=== PATIENT | male | born 1995 | race Caucasian/White ===

== ENCOUNTER 2018-12-04 17:05 | Emergency (ER) | payer SELFPAY ==
--- NOTE | 2018-12-04 17:34 | RADIOLOGY REPORT (SQ) ---
EXAM DESCRIPTION: HAND RIGHT 3 VIEWS COMPLETED DATE/TIME: 12/04/2018 5:25 pm REASON FOR STUDY: R hand injury/hit against metal bar/swollen COMPARISON: None. EXAM PARAMETERS: NUMBER OF VIEWS: Three views. TECHNIQUE: AP, lateral and oblique radiographic images acquired of the right hand. LIMITATIONS: None. FINDINGS: MINERALIZATION: Normal. BONES: 5th metacarpal diaphyseal fracture with mild dorsal angulation, no displacement. No other fra cture or Dislocation. No worrisome bone lesions. JOINTS: No effusion. SOFT TISSUES: Mild soft tissue swelling. No radiopaque foreign body. OTHER: No other significant finding. IMPRESSION: 5th metacarpal diaphyseal fracture with mild dorsal angulation, no displacement. TECHNICAL DOCUMENTATION: JOB ID: [id number] [id number] 2010 [employer]- All Rights Reserved Reading location - IP/workstation name: [email or web address]
--- NOTE | 2018-12-04 17:41 | ER Document Report ---
ED Hand/Wrist Injury - General Chief Complaint: Hand Injury Stated Complaint: HAND INJURY Time Seen by Provider: 12/04/18 17:32 Mode of Arrival: Ambulatory Information source: Patient TRAVEL OUTSIDE OF THE [place] IN LAST 30 DAYS: No - HPI Patient complains to provider of: R hand pain Injury to: Hand Onset: Yesterday - Related Data Allergies/Adverse Reactions: No Known Allergies Allergy (Unverified 12/04/18 17:10) Past Medical History - Social History Smoking Status: Current Every Day Smoker Cigarette use (# per day): Yes Smoking Education Provided: Yes Family History: None Patient has suicidal ideation: No Patient has homicidal ideation: No Renal/ Medical History: Denies: Hx Peritoneal Dialysis Review of Systems - Review of Systems Constitutional: No symptoms reported EENT: No symptoms reported Cardiovascular: No symptoms reported Musculoskeletal: See HPI, Joint pain -: Yes All other systems reviewed and negative Physical Exam - Vital signs Vitals: Temp Pulse Resp BP Pulse Ox 98.7 F 60 18 126/75 H 100 12/04/18 17:08 12/04/18 17:08 12/04/18 17:08 12/04/18 17:08 12/04/18 17:08 - Extremities Hand: Tender - over [facility] -- no deformity, pos STS Course - Vital Signs Vital signs: Temp Pulse Resp BP Pulse Ox 98.7 F 60 18 126/75 H 100 12/04/18 17:08 12/04/18 17:08 12/04/18 17:08 12/04/18 17:08 12/04/18 17:08 - Diagnostic Test Radiology reviewed: Image reviewed - fx 5th Procedures - Immobilization Right Hand Immobilizer type: Ulnar Performed by: RN Post-Proc Neuro Vasc Exam: Normal Discharge - Discharge Clinical Impression: Hand fracture, right Qualifiers: Encounter type: initial encounter Fracture type: closed Qualified Code(s): S62.91XA - Unspecified fracture of right wrist and hand, initial encounter for closed fracture Condition: Stable Disposition: HOME, SELF-CARE Additional Instructions: rest, splint, tylenol/motrin for pain, return if worse Referrals: ROXANA MANJARREZ MD [ACTIVE STAFF] - Follow up as needed
[2018-12-04 18:17] VITALS: BP 121/72
== END 2018-12-04 18:15 | disposition home or self-care (01) ==
LOC: ER 17:05
DX: S62.91XA Unspecified fracture of right hand, initial encounter for closed fracture (principal); X58.XXXA Exposure to other specified factors, initial encounter; F17.210 Nicotine dependence, cigarettes, uncomplicated
CPT/HCPCS: 99283